=== PATIENT | female | born 1975 | race Asian ===

== ENCOUNTER → 2018-09-19 | Outpatient (CLI) | payer BC ==
[~2018-09-19] MED LIST: PRENATAL1 TA1 PO
== END ==
LOC: MC.RAD 14:40
DX: Z12.31 Encounter for screening mammogram for malignant neoplasm of breast (principal)

== ENCOUNTER → 2018-10-17 | Outpatient (CLI) | payer BC | LOC: COL.RAD 14:45 | DX: N88.8 Other specified noninflammatory disorders of cervix uteri (principal); R93.89 Abnormal findings on diagnostic imaging of other specified body structures | CPT/HCPCS: A9585 ==

== ENCOUNTER → 2020-12-19 | Outpatient (CLI) | payer BC | LOC: MC.RAD 14:04 | DX: Z12.31 Encounter for screening mammogram for malignant neoplasm of breast (principal) ==

== ENCOUNTER 2023-09-22 08:59 | Day surgery (SDC) | payer BC ==
[~2023-09-22] VITALS: Ht 152.4 cm; Wt 67.6 kg
[2023-09-22] MEDS ORDERED: SYNTHROID0.1 MG/TAB PO (09:20)
[2023-09-22] MEDS ORDERED: ATIVAN 0.50.5 MG/TAB PO (09:21)
[2023-09-22] MEDS ORDERED: MASON NATURAL2000 IU PO (09:22)
[2023-09-22 09:49] VITALS: BP 108/68; PULSE 65; TEMP 97.5
--- NOTE | 2023-09-22 09:51 | NUR ---
0907 Pt ambulatory to bay [facility] with a steady gait, breathing even and unlabored. Pt is alert and oriented, accompanied by her . Consents reviewed and signed by pt. IV established. LR infusing via gravity at KVO. Call light in reach. Warm blankets provided.
[2023-09-22 12:10] VITALS: BP 97/58; PULSE 58; TEMP 97.1
[2023-09-22 12:25] VITALS: BP 100/68; PULSE 56
[2023-09-22 12:40] VITALS: BP 104/56; PULSE 60
--- NOTE | 2023-09-22 13:35 | NUR ---
1210-PT ARRIVED VIA CART TO [facility] , PATIENT ALERT ON ARRIVAL. AMBULATED WITH ASSISTANCE TO RECLINER, WARM BLANKET PROVIDED. VITAL SIGNS TAKEN, VSS. PT DENIES PAIN OR NAUSEA. REPORT OBTAINED FROM [facility]. UPDATE GIVEN TO PATIENT AND FAMILY AT BEDSIDE. 1225-VSS. PT TOLERATING PO INTAKE WITHOUT COMPLAINTS, DENIES PAIN OR NAUSEA. 1255-PROVIDER AT BEDSIDE. PROCEDURE FINDINGS EXPLAINED. 1305-DISCHARGE INSTRUCTIONS REVIEWED WITH PT AND FAMILY, QUESTIONS INVITED. PATIENT CHANGED INTO CLOTHING INDEPENDENTLY. 1305-IV CATHETER DISCONTINUED, TIP INTACT. PRESSURE HELD AND BANDAGE APPLIED. 1315-PATIENT DISCHARGED HOME TO [facility] VIA WHEELCHAIR, ACCOMPANIED BY FAMILY. ALL BELONGINGS AND D/C PAPERWORK SENT WITH PT.
== END 2023-09-22 13:15 | disposition home or self-care (01) ==
LOC: SDCO 08:59
DX: Z12.11 Encounter for screening for malignant neoplasm of colon (principal); D12.0 Benign neoplasm of cecum; D12.2 Benign neoplasm of ascending colon; D12.3 Benign neoplasm of transverse colon; K63.5 Polyp of colon
CPT/HCPCS: J2704; J7120

== ENCOUNTER → 2024-05-22 | Outpatient (CLI) | payer BC, OTHER ==
[~2024-05-22] MED LIST changes: +ATIVAN 0.50.5 MG/TAB PO; +MASON NATURAL2000 IU PO; +SYNTHROID0.1 MG/TAB PO
== END ==
LOC: MC.RAD 14:30
DX: Z12.31 Encounter for screening mammogram for malignant neoplasm of breast (principal); N63.20 Unspecified lump in the left breast, unspecified quadrant